=== PATIENT | male | born 1955 | race African-American/Black ===

== ENCOUNTER 2019-01-07 11:30 | Inpatient (IN) | payer OTHER ==
[2019-01-07 12:55] VITALS: BMI 24.4
--- NOTE | 2019-01-07 14:05 | HP ---
COWS - Scale Resting Pulse: 0= [place] 80 or Below Sweatin= Chills/Flushing Restless Observation: 3= Extraneous Movement Pupil Size: 1= Pupils >than Normal Bone or Joint Aches: 2= Severe Diffuse Aches Runny Nose/ Eye Tearin= Runny Nose/Eyes GI Upset > 30mins: 2= Nausea/Diarrhea Tremor Observation: 2= Slight Tremor Visible Yawning Observation: 2= >3x During Session Anxiety or Irritability: 2=Irritable/Anxious Goose Flesh Skin: 0=Smooth Skin COWS Score: 17 CIWA Score Nausea/Vomitin Muscle Tremors: 2 Anxiety: 2 Agitation: 2 Paroxysmal Sweats: 1-Minimal Palms Moist Orientation: 0-Oriented Tacttile Disturbances: 1-Very Mild Itch/Numbness Auditory Disturbances: 1-Very Mild Visual Disturbances: 0-None Headache: 2-Mild CIWA-Ar Total Score: 13 - Admission Criteria [facility] Guidelines: Admission for Medically Managed Detox: Requires at least one of the followin. CIWA greater than 12 2. Seizures within the past 24 hours 3. Delirium tremens within the past 24 hours 4. Hallucinations within the past 24 hours 5. Acute intervention needed for co occurring medical disorder 6. Acute intervention needed for co occurring psychiatric disorder 7. Severe withdrawal that cannot be handled at a lower level of care (continued vomiting, continued diarrhea, abnormal vital signs) requiring intravenous medication and/or fluids 8. Patient presents the following: CIWA greater than 12 Admission Criteria Met: Admission criteria met Admission ROS [facility] - [facility] Chief Complaint: i need help to stop using heroin,xanax,cocaine Allergies/Adverse Reactions: Allergies Allergy/AdvReac Type Severity Reaction Status Date / Time No Known Allergies Allergy Verified 01/07/19 15:50 History of Present Illness: this 63 years old male with heroin,xanax and cocaine dependence seeking detox, withdrawal symptom,last detox interfaithe 15 years ago nicotine dependence weight loss longest period of sobriety plan for out patient after detox Exam Limitations: No Limitations - Ebola screening Have you traveled outside of the country in the last 21 days: No Have you had contact with anyone from an Ebola affected area: No Have you been sick,other than usual withdrawal symptoms: No Do you have a fever: No - Review of Systems Constitutional: Chills, Loss of Appetite, Malaise, Night Sweats, Changes in sleep, Weakness, Unintentional Wgt. Loss EENT: reports: Tearing, Nose Congestion Respiratory: reports: No Symptoms reported Cardiac: reports: No Symptoms Reported GI: reports: Diarrhea, Nausea, Vomiting, Abdominal cramping : reports: No Symptoms Reported Musculoskeletal: reports: Back Pain, Joint Pain, Muscle Pain, Joint Stiffness Integumentary: reports: Dryness Neuro: reports: Headache, Tremors Endocrine: reports: No Symptoms Reported Hematology: reports: No Symptoms Reported Psychiatric: reports: No Sypmtoms Reported, Judgement Intact, Mood/Affect Appropiate, Orientated x3, other Other Systems: Reviewed and Negative Patient History - Patient Medical History Hx Anemia: No Hx Asthma: No Hx Chronic Obstructive Pulmonary Disease (COPD): No Hx Cancer: No Hx Cardiac Disorders: No Hx Congestive Heart Failure: No Hx Hypertension: No Hx Hypercholesterolemia: No Hx Pacemaker: No HX Cerebrovascular Accident: No Hx Seizures: No Hx Dementia: No Hx Diabetes: No Hx Gastrointestinal Disorders: No Hx Liver Disease: No Hx Genitourinary Disorders: No Hx Sexually Transmitted Disorders: No Hx Renal Disease (ESRD): No Hx Thyroid Disease: No Hx Human Immunodeficiency Virus (HIV): Yes (since 1987) Hx Hepatitis C: No Hx Depression: No Hx Suicide Attempt: No Hx Bipolar Disorder: No Hx Schizophrenia: No Other Medical History: no suicidal,,no homicidal - Patient Surgical History Past Surgical History: No - Smoking Cessation Smoking history: Current every day smoker Have you smoked in the past 12 months: Yes Aproximately how many cigarettes per day: 5 Cigars Per Day: 0 Hx Chewing Tobacco Use: No Initiated information on smoking cessation: Yes 'Breaking Loose' booklet given: 01/07/19 - Substance & Tx. History Hx Alcohol Use: Yes Hx Substance Use: Yes Substance Use Type: Cocaine, Heroin, Tranquilizers Hx Substance Use Treatment: Yes (15 years ago interfaithe) - Substances Abused Heroin Route: Injection Frequency: Daily Amount used: 5 or 6 bags Age of first use: 14 Date of Last Use: 01/07/19 Alprazolam (Xanax) Route: Oral Frequency: Daily Amount used: 8 mgs Age of first use: 61 Date of Last Use: 01/06/19 Cocaine Route: Injection Frequency: 3-6 times per week Amount used: 150$ Age of first use: 15 Date of Last Use: 01/05/19 Family Disease History - Family Disease History Family History: Denies Admission Physical Exam [facility] - Vital Signs Vital Signs: Vital Signs - 24 hr 01/07/19 12:50 Temperature 99.1 F Pulse Rate 68 Respiratory 18 Rate Blood Pressure 123/73 - Physical General Appearance: Yes: Moderate Distress, Tremorous, Irritable, Sweating, Anxious HEENTM: Yes: Normal ENT Inspection, ALFONSO, Pharynx Normal Respiratory: Yes: Within Normal Limits, Lungs Clear, Normal Breath Sounds Neck: Yes: Within Normal Limits, Supple, Trachea in good position Breast: Yes: Within Normal Limits Cardiology: Yes: Within Normal Limits, Regular Rhythm, Regular Rate, S1, S2 Abdominal: Yes: Normal Bowel Sounds, Non Tender, Soft, Organomegaly Genitourinary: Yes: Within Normal Limits Back: Yes: Muscle Spasm Musculoskeletal: Yes: Back pain, Joint Stiffness, Muscle Pain Extremities: Yes: Tremors 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 NML intact, Fully Oriented, Alert, Motor Strength 5/5 Integumentary: Yes: Dry Lymphatic: Yes: Within Normal Limits - Diagnostic (1) Opioid dependence with withdrawal Current Visit: Yes Status: Acute (2) Cocaine dependence Current Visit: Yes Status: Acute (3) Uncomplicated sedative, hypnotic or anxiolytic withdrawal Current Visit: Yes Status: Acute (4) HIV (human immunodeficiency virus infection) Current Visit: Yes Status: Acute (5) Weight loss Current Visit: Yes Status: Acute (6) Nicotine dependence Current Visit: Yes Status: Acute (7) IVDU (intravenous drug user) Current Visit: Yes Status: Acute Cleared for Admission [facility] - Detox or Rehab [facility] Level of Care: Medically Managed Detox Regimen/Protocol: Methadone/Valium [facility] Breath Alcohol Content Breath Alcohol Content: 0 Urine Drug Screen - Results Drug Screen Negative: No Urine Drug Screen Results: KEL-Cocaine, OPI-Opiates, BZO-Benzodiazepines, OXY- Oxycodone, FEN-Fentanyl Inpatient Rehab Admission - Rehab Decision to Admit Inpatient rehab admission?: No
[2019-01-07] MEDS ORDERED: MAG HYDROX/AL HYDROX/SIMETH 30 ML UNIT-DOSE CUP PO PRN (14:27)
[2019-01-07] MEDS ORDERED: IBUPROFEN 400 MG TABLET (FP) PO PRN (14:27)
[2019-01-07] MEDS ORDERED: MENTHOL/PHENOL 1 EACH UD MM PRN (14:27)
[2019-01-07] MEDS ORDERED: P-EPHED 60MG/TRIPROLIDI 2.5MG TABLET PO PRN (14:27)
[2019-01-07] MEDS ORDERED: MAGNESIUM CITRATE 300 ML BOTTLE PO PRN (14:27)
[2019-01-07] MEDS ORDERED: MAGNESIUM HYDROX 2400MG/30ML ORAL SUSPENSION 30 ML CUP PO PRN (14:27)
[2019-01-07] MEDS ORDERED: ACETAMINOPHEN 325 MG TABLET (FP) PO PRN (14:27)
[2019-01-07] MEDS ORDERED: guaiFENesin/D-METHORPHAN HB 10 ML UNIT-DOSE CUPS PO PRN (14:27)
[2019-01-07] MEDS ORDERED: LOPERAMIDE HCL 2 MG CAPSULE PO PRN (14:27)
[2019-01-07] MEDS ORDERED: METHADONE HCL 10 MG TABLET (FOR DETOX USE ONLY) PO ONE ×2 (16:30→23:00)
[2019-01-07] MEDS ORDERED: diazePAM 5 MG TABLET PO ONE (16:30)
[2019-01-07] MEDS ORDERED: MELATONIN 5 MG TABLETS PO PRN (22:00)
[2019-01-07] MEDS: diazePAM 5 MG TABLET PO SCH (22:21)
[2019-01-07] MEDS: THIAMINE HCL 100 MG TABLET (FP) PO SCH (22:21)
[2019-01-08] MEDS: diazePAM 5 MG TABLET PO SCH ×3 (06:00→22:23)
[2019-01-08] MEDS ORDERED: METHADONE HCL 10 MG TABLET (FOR DETOX USE ONLY) PO SCH (10:00)
[2019-01-08] MEDS: PRENATAL VITAMINS W/ FOLIC ACID TABLET (FP) PO SCH (10:32)
[2019-01-08 11:27] LABS: ALBUMIN 3.3 g/dl (3.4-5.0); ALK PHOS 121 U/L (45-117); ANION GAP 3 MMOL/L (8-16); BILIRUBIN,TOTAL 0.2 mg/dL (0.2-1); BLOOD UREA NITROGEN 15 mg/dL (7-18); CALCIUM 8.8 mg/dL (8.5-10.1); CHLORIDE 108 mmol/L (98-107); CO2 31 mmol/L (21-32); CREATININE 0.9 mg/dL (0.55-1.3); GLUCOSE,RANDOM 115 mg/dL (74-106); POTASSIUM 4.4 mmol/L (3.5-5.1); SGOT/AST 31 U/L (15-37); SGPT/ALT 28 U/L (13-61); SODIUM 142 mmol/L (136-145); TOT PROT 6.8 g/dl (6.4-8.2)
[2019-01-08 11:52] LABS: HEMATOCRIT 28.9 % (35.4-49); HEMOGLOBIN 9.7 GM/dL (11.7-16.9); MCHC 33.6 g/dl (32.0-35.9); MEAN CELL VOLUME 86.3 fl (80-96); MEAN PLT VOLUME 8.1 fl (7.5-11.1); PLATELET COUNT 105 K/MM3 (134-434); RBC 3.34 M/mm3 (4.00-5.60); RDW 15.7 % (11.9-15.9); WHITE BLOOD COUNT 2.7 K/mm3 (4.0-10.0)
--- NOTE | 2019-01-08 14:44 | EKG ---
Test Reason : Blood Pressure : / mmHG Vent. Rate : 059 BPM Atrial Rate : 059 BPM P-R Int : 240 ms QRS Dur : 082 ms QT Int : 404 ms P-R-T Axes : 055 049 052 degrees QTc Int : 399 ms SINUS BRADYCARDIA WITH 1ST DEGREE A-V BLOCK OTHERWISE NORMAL ECG NO PREVIOUS ECGS AVAILABLE Confirmed by Anurag Cheney MD ([id number]) on 01/08/2019 2:44:03 PM Referred By: Confirmed By:Anurag Cheney MD
--- NOTE | 2019-01-08 16:47 | PN ---
[facility] CIWA - CIWA Score Nausea/Vomitin-Mild Nausea/No Vomiting Muscle Tremors: 3 Anxiety: 2 Agitation: 3 Paroxysmal Sweats: 3 Orientation: 0-Oriented Tacttile Disturbances: 0-None Auditory Disturbances: 0-None Visual Disturbances: 0-None Headache: 0-None Present CIWA-Ar Total Score: 12 S COWS - Scale Resting Pulse: 0= [place] 80 or Below Sweatin=Flushed/Facial Moisture Restless Observation: 1= Difficult to Sit Still Pupil Size: 0= Normal to Room Light Bone or Joint Aches: 1= Mild Discomfort Runny Nose/ Eye Tearin= Nasal Congestion GI Upset > 30mins: 0= None Tremor Observation of Outstretched Hands: 2= Slight Tremor Visible Yawning Observation: 0= None Anxiety or Irritability: 1=Feels Anxious/Irritable Goose Flesh Skin: 0=Smooth Skin COWS Score: 8 [facility] Progress Note (SOAP) Subjective: sweats minor body ache Objective: 01/08/19 16:45 A & O x 3 gait steady Vital Signs Temperature 98.1 F 01/08/19 14:29 Pulse Rate 58 L 01/08/19 14:29 Respiratory Rate 18 01/08/19 14:29 Blood Pressure 139/94 01/08/19 14:29 O2 Sat by Pulse Oximetry (%) Laboratory Last Values WBC 2.7 K/mm3 (4.0-10.0) L 01/08/19 05:45 RBC 3.34 M/mm3 (4.00-5.60) L 01/08/19 05:45 Hgb 9.7 GM/dL (11.7-16.9) L 01/08/19 05:45 Hct 28.9 % (35.4-49) L 01/08/19 05:45 MCV 86.3 fl (80-96) 01/08/19 05:45 MCH 29.0 pg (25.7-33.7) 01/08/19 05:45 MCHC 33.6 g/dl (32.0-35.9) 01/08/19 05:45 RDW 15.7 % (11.9-15.9) 01/08/19 05:45 Plt Count 105 K/MM3 (134-434) L 01/08/19 05:45 MPV 8.1 fl (7.5-11.1) 01/08/19 05:45 Sodium 142 mmol/L (136-145) 01/08/19 05:45 Potassium 4.4 mmol/L (3.5-5.1) 01/08/19 05:45 Chloride 108 mmol/L (98-107) H 01/08/19 05:45 Carbon Dioxide 31 mmol/L (21-32) 01/08/19 05:45 Anion Gap 3 MMOL/L (8-16) L 01/08/19 05:45 BUN 15 mg/dL (7-18) 01/08/19 05:45 Creatinine 0.9 mg/dL (0.55-1.3) 01/08/19 05:45 Creat Clearance w eGFR > 60 (>60) 01/08/19 05:45 Random Glucose 115 mg/dL (74-106) H 01/08/19 05:45 Calcium 8.8 mg/dL (8.5-10.1) 01/08/19 05:45 Total Bilirubin 0.2 mg/dL (0.2-1) 01/08/19 05:45 AST 31 U/L (15-37) 01/08/19 05:45 ALT 28 U/L (13-61) 01/08/19 05:45 Alkaline Phosphatase 121 U/L (45-117) H 01/08/19 05:45 Total Protein 6.8 g/dl (6.4-8.2) 01/08/19 05:45 Albumin 3.3 g/dl (3.4-5.0) L 01/08/19 05:45 RPR Titer Nonreactive (NONREACTIVE) 01/08/19 05:45 low H & H elevated random glucose Assessment: 01/08/19 16:47 withdrawal sx low blood count Plan: continue detox Feosol for low blood count
[2019-01-08] MEDS: FERROUS SO4 325 MG TABLET (FP) PO SCH (22:23)
[2019-01-08] MEDS: THIAMINE HCL 100 MG TABLET (FP) PO SCH (22:23)
[2019-01-09] MEDS ORDERED: METHADONE HCL 5 MG TABLET (FOR DETOX USE ONLY) PO SCH (10:00)
[2019-01-09] MEDS: FERROUS SO4 325 MG TABLET (FP) PO SCH ×2 (10:09→22:28)
[2019-01-09] MEDS: PRENATAL VITAMINS W/ FOLIC ACID TABLET (FP) PO SCH (10:09)
[2019-01-09] MEDS: diazePAM 5 MG TABLET PO SCH ×2 (10:10→22:28)
--- NOTE | 2019-01-09 16:34 | PN ---
[facility] CIWA - CIWA Score Nausea/Vomitin-Mild Nausea/No Vomiting Muscle Tremors: 3 Anxiety: 3 Agitation: 2 Paroxysmal Sweats: 3 Orientation: 0-Oriented Tacttile Disturbances: 1-Very Mild Itch/Numbness Auditory Disturbances: 0-None Visual Disturbances: 0-None Headache: 0-None Present CIWA-Ar Total Score: 13 [facility] COWS - Scale Resting Pulse: 0= [place] 80 or Below Sweatin= Chills/Flushing Restless Observation: 3= Extraneous Movement Pupil Size: 0= Normal to Room Light Bone or Joint Aches: 2= Severe Diffuse Aches Runny Nose/ Eye Tearin= None GI Upset > 30mins: 1= Stomach Cramp Tremor Observation of Outstretched Hands: 2= Slight Tremor Visible Yawning Observation: 0= None Anxiety or Irritability: 1=Feels Anxious/Irritable Goose Flesh Skin: 0=Smooth Skin COWS Score: 10 [facility] Progress Note (SOAP) Subjective: Sweating, chills, tremor, interrupted sleep Objective: 01/09/19 16:32 Last Vital Signs Temp Pulse Resp BP Pulse Ox 97.0 F L 65 18 141/81 01/09/19 09:27 01/09/19 09:27 01/09/19 09:27 01/09/19 09:27 Laboratory Tests 01/08/19 01/08/19 01/08/19 05:45 05:45 05:45 WBC 2.7 L RBC 3.34 L Hgb 9.7 L Hct 28.9 L MCV 86.3 MCH 29.0 MCHC 33.6 RDW 15.7 Plt Count 105 L MPV 8.1 Sodium 142 Potassium 4.4 Chloride 108 H Carbon Dioxide 31 Anion Gap 3 L BUN 15 Creatinine 0.9 Creat Clearance w eGFR > 60 Random Glucose 115 H Calcium 8.8 Total Bilirubin 0.2 AST 31 ALT 28 Alkaline Phosphatase 121 H Total Protein 6.8 Albumin 3.3 L RPR Titer Nonreactive Labs reviewed: pancytopenia noted Assessment: 01/09/19 16:33 Withdrawal symptoms Noted with pancytopenia Plan: Continue detox Encouraged PO water hydration Pancytopenia: probably due to substance abuse Follow up with PCP post discharge for evaluation
[2019-01-09] MEDS: THIAMINE HCL 100 MG TABLET (FP) PO SCH (22:28)
[2019-01-10] MEDS: diazePAM 5 MG TABLET PO PRN ×2 (00:38→06:30)
[2019-01-10 07:04] VITALS: PULSE 71
[2019-01-10 10:06] VITALS: BP 115/63; TEMP 97
--- NOTE | 2019-01-10 14:08 | DS ---
[facility] Detox Discharge Summary Admission Date: 01/07/19 Discharge Date: 01/10/19 - History Present History: Cocaine Dependence, Opioid Dependence, Sedative Dependence Additional Comments: PATIENT CONCERN OVER THE FACT THAT HE HAS "NOT RECEIVED HIS H.I.V. MEDICATION SINCE HE HAS BEEN ADMITTED." PATIENT REPORTS TAHT HE DOES NOT FEEL WELL IN GENERAL AND THAT HE BELIEVES THIS TO BE DUE TO THE FACT THAT HE HAS NOT RECEIVED HIS H.I.V. MEDICATION FOR LAST FEW DAYS. NO H.I.V. MEDICATION LISTED PART OF ADMISSION HISTORY AND PHYSICAL ASSESSMENT. PATIENT OFFERED OPPORTUNITY TO HAVE N.P. CONTACT HIS PHARMACY ('[facility],[place], [place]) TO INQUIRE ABOUT PATIENT'S MEDICATION PRESCRIPTION HISTORY ONCE PHARMACY OPENS AND TO THEN RE-EVALUATE SITUATION. HOWEVER, PATIENT DECLINES TO DO SO AND IS ELECTING TO LEAVE THE DETOX UNIT AMA AT THIS TIME. RISKS OF LEAVING DETOX UNIT AGAINST MEDICAL ADVICE AND PRIOR TO COMPLETION OF DETOX REGIMEN EXPLAINED TO PATIENT. PATIENT ADVISED TO GO IMMEDIATELY TO NEAREST ER SHOULD ANY INTOLERABLE DETOX SYMPTOMS DEVELOP AT ANY TIME. PATIENT ALSO ADVISED TO FOLLOW-UP WITH PRODUCT SUPPORT SPECIALIST DR. RUBI ('[facility], [place], [place]) SOON POSSIBLE FOR GENERAL MEDICAL ASSESSMENT AND FOR FURTHER EVALUATION FOR HISTORY OF H.I.V. AND FOR PANCYTOPENIA NOTED ON ADMISSION LABORATORY ASSESSMENT WHILE ADMITTED FOR DETOX. PATIENT VERBALIZED UNDERSTANDING OF ALL INFORMATION / RECOMMENDATIONS PRESENTED TO HIM PRIOR TO DEPARTURE FROM DETOX UNIT. PATIENT LEFT DETOX UNIT IN STABLE MEDICAL CONDITION. Pertinent Past History: H.I.V., Nicotine Dependence, Intravenous Drug User, Pancytopenia, Weight Loss. - Physical Exam Results Vital Signs: Vital Signs Temperature 97 F L 01/10/19 10:31 Pulse Rate 71 01/10/19 10:31 Respiratory Rate 18 01/10/19 10:31 Blood Pressure 115/63 01/10/19 10:31 O2 Sat by Pulse Oximetry (%) Pertinent Admission Physical Exam Findings: WITHDRAWAL SYMPTOMS. Laboratory Tests 01/08/19 01/08/19 01/08/19 05:45 05:45 05:45 WBC 2.7 L RBC 3.34 L Hgb 9.7 L Hct 28.9 L MCV 86.3 MCH 29.0 MCHC 33.6 RDW 15.7 Plt Count 105 L MPV 8.1 Sodium 142 Potassium 4.4 Chloride 108 H Carbon Dioxide 31 Anion Gap 3 L BUN 15 Creatinine 0.9 Creat Clearance w eGFR > 60 Random Glucose 115 H Calcium 8.8 Total Bilirubin 0.2 AST 31 ALT 28 Alkaline Phosphatase 121 H Total Protein 6.8 Albumin 3.3 L RPR Titer Nonreactive LABS NOTED. - Treatment Hospital Course: Detoxed Safely - Medication Discharge Medications: Ambulatory Orders Unobtainable 01/07/19 - Diagnosis (1) IVDU (intravenous drug user) Status: Acute (2) Opioid dependence with withdrawal Status: Acute (3) Pancytopenia Status: Acute (4) Uncomplicated sedative, hypnotic or anxiolytic withdrawal Status: Acute (5) Weight loss Status: Acute (6) Cocaine dependence Status: Chronic Qualifiers: Substance use status: uncomplicated Qualified Code(s): F14.20 - Cocaine dependence, uncomplicated (7) HIV (human immunodeficiency virus infection) Status: Chronic Qualifiers: HIV symptom status: unspecified Qualified Code(s): B20 - Human immunodeficiency virus [HIV] disease (8) Nicotine dependence Status: Chronic Qualifiers: Nicotine product type: cigarettes Substance use status: uncomplicated Qualified Code(s): F17.210 - Nicotine dependence, cigarettes, uncomplicated - AMA Did Patient Leave Against Medical Advice: Yes (PT. DOES NOT WISH TO REMAIN TO COMPLETE DETOX REGIMEN. SEE ABOVE.)
--- NOTE | 2019-01-10 14:16 | PN ---
S Progress Note (SOAP) Subjective: Fatigue, Anxious, Stomach Cramping, Interrupted Sleep. Objective: PATIENT A & O X 3, OBSERVED AMBULATING ON UNIT. IN NO ACUTE DISTRESS. 01/10/19 14:16 Vital Signs Temperature 97 F L 01/10/19 10:31 Pulse Rate 71 01/10/19 10:31 Respiratory Rate 18 01/10/19 10:31 Blood Pressure 115/63 01/10/19 10:31 O2 Sat by Pulse Oximetry (%) Laboratory Tests 01/08/19 01/08/19 01/08/19 05:45 05:45 05:45 WBC 2.7 L RBC 3.34 L Hgb 9.7 L Hct 28.9 L MCV 86.3 MCH 29.0 MCHC 33.6 RDW 15.7 Plt Count 105 L MPV 8.1 Sodium 142 Potassium 4.4 Chloride 108 H Carbon Dioxide 31 Anion Gap 3 L BUN 15 Creatinine 0.9 Creat Clearance w eGFR > 60 Random Glucose 115 H Calcium 8.8 Total Bilirubin 0.2 AST 31 ALT 28 Alkaline Phosphatase 121 H Total Protein 6.8 Albumin 3.3 L RPR Titer Nonreactive LABS NOTED. Assessment: 01/10/19 14:17 WITHDRAWAL SYMPTOMS. PANCYTOPENIA. 01/10/19 14:18 Plan: CONTINUE DETOX. PATIENT EXPRESSING DESIRE TO LEAVE DETOX UNIT A.M.A. DUE TO NOT HAVING RECEIVED HIS H.I.V. MEDICATION SINCE HE WAS ADMITTED TO DETOX UNIT. SEE FOLLOWING S, DETOX DISCHARGE SUMMARY.
[2019-01-11] MEDS ORDERED: METHADONE HCL 10 MG TABLET (FOR DETOX USE ONLY) PO SCH (10:00)
[2019-01-11] MEDS ORDERED: diazePAM 5 MG TABLET PO SCH (10:00)
[2019-01-12] MEDS ORDERED: METHADONE HCL 5 MG TABLET (FOR DETOX USE ONLY) PO SCH (06:00)
== END 2019-01-10 10:35 | disposition left against medical advice (07) | DRG 770 ==
LOC: YASAS 11:30 → Y6N 16:13
PROVIDERS: ADMIT Surgery; ATTEND Surgery
PROC: HZ2ZZZZ Detoxification Services for Substance Abuse Treatment (ICD-10-PCS; principal; 2019-01-07)
DX: F11.23 Opioid dependence with withdrawal (principal); F13.230 Sedative, hypnotic or anxiolytic dependence with withdrawal, uncomplicated; F14.20 Cocaine dependence, uncomplicated; F17.210 Nicotine dependence, cigarettes, uncomplicated; Z21 Asymptomatic human immunodeficiency virus [HIV] infection status; D61.818 Other pancytopenia; D64.9 Anemia, unspecified; R73.9 Hyperglycemia, unspecified
CPT/HCPCS: 36415; 80053; 85027; 86593; 93005; 93010